=== PATIENT | male | born 1960 | race Two or more races ===

== ENCOUNTER → 2020-10-26 08:00 | Outpatient (CLI) | payer OTHER ==
[~2020-10-26 08:00] MED LIST: AMLODIPINE BESYL5 MG PO; CARVEDILOL12.5 M1 PO; CHILDREN'S ASPI81 MG PO; CRESTOR20 MG PO; FLUOXETINE HCL40 MG PO; GRALISE600 MG PO; LANTUS SOL100 UNIT/1; LORAZEPAM1 MG PO; METFORMIN HCL1000 M2 PO; NOVOLOG MI100 UNIT/1; RESTORIL30 M1 PO; RISPERDAL2 MG PO; TORSEMIDE10 MG PO; VALSARTAN160 MG PO
== END | disposition home or self-care (01) ==
LOC: ADM 07:30 → LAB 08:00 → EDSTATUS 11-02 07:30 → CIR.AMB 11-02 07:30
PROVIDERS: ATTEND Orthopaedic Surgery Hand Surgery
DX: Z20.828 Contact with and (suspected) exposure to other viral communicable diseases (principal); M72.0 Palmar fascial fibromatosis [Dupuytren]; R05 Cough; D66 Hereditary factor VIII deficiency; D65 Disseminated intravascular coagulation [defibrination syndrome]; Z01.810 Encounter for preprocedural cardiovascular examination; I10 Essential (primary) hypertension